=== PATIENT | female | born 1965 | race Caucasian/White ===

== ENCOUNTER 2023-06-10 19:34 | Inpatient (IN) | payer MEDICAID ==
[~2023-06-10] VITALS: Ht 129.5 cm; Wt 63.0 kg
[2023-06-10 19:43] VITALS: BP 11/71; PULSE 90; RESP 22; TEMP 99.2; O2SAT 98
--- NOTE | 2023-06-10 20:06 | NUR ---
PT TAKEN TO BED AMBULATORY
--- NOTE | 2023-06-10 20:10 | NUR ---
57yo f cc of 9/10 left flank pain this 4am associated with vomiting and fever. denies pmhx and allergy. pt resting on bed, a/ox4, not in distress. on monitor, call light oriented and within reach. bed locked in lowest position. side rails x2 for safety. daughter at bedside
--- NOTE | 2023-06-10 20:23 | NUR ---
Patient being evaluated by physician at bedside.
[2023-06-10] MEDS ORDERED: KETOROLAC 30 MG/ML VIAL IVP ONE (20:25)
[2023-06-10] MEDS ORDERED: NACL 0.9% 1,000 ML IV ONE ×2 (20:25→21:10)
[2023-06-10 20:42] LABS: BASOPHILS % (AUTO) 0.1 % (0.0-2.0); HEMATOCRIT 35.7 % (36-48); HEMOGLOBIN 12.2 g/dL (12.0-16.0); LYMPHOCYTES # (AUTO) 0.3 K/uL (2.5-16.5); LYMPHOCYTES % (AUTO) 6.2 % (20.5-51.1); MEAN CORPUSCULAR HEMOGLOBIN 30 pg (27-31); MEAN CORPUSCULAR HGB CONC 34 g/dL (33-37); MEAN CORPUSCULAR VOLUME 88.3 fL (80-94); MONOCYTES % (AUTO) 0.4 % (1.7-9.3); NEUTROPHILS # (AUTO) 3.8 K/uL (1.8-7.7); NEUTROPHILS % (AUTO) 93.3 % (42.2-75.2); PLATELET COUNT (AUTO) 181 K/uL (140-450); RED BLOOD CELL COUNT(AUTO) 4.05 MIL/uL (4.20-5.40); WHITE BLOOD COUNT (AUTO) 4.1 K/uL (4.8-10.8)
[2023-06-10 20:49] LABS: BILIRUBIN,URINE NEGATIVE (NEGATIVE); BLOOD, URINE 2+ (NEGATIVE); COLOR,URINE YELLOW (YELLOW); LEUKOCYTE ESTERASE ,URINE 3+ (NEGATIVE); NITRITE, URINE POSITIVE (NEGATIVE); PH,URINE 8.5 (5.0-9.0); UGLUCOSE NEGATIVE (NEGATIVE)
[2023-06-10 20:50] LABS: APPEARANCE,URINE CLOUDY (CLEAR)
[2023-06-10 20:54] LABS: ALBUMIN 3.7 g/dL (3.4-5.0); ANION GAP 15.4 (8-16); CARBON DIOXIDE 25.5 mmol/L (21-32); CREATININE 1.1 mg/dL (0.6-1.3); TOTAL BILIRUBIN 1.6 mg/dL (0.0-1.0)
[2023-06-10 20:57] LABS: POTASSIUM 2.9 mmol/L (3.5-5.1)
--- NOTE | 2023-06-10 21:00 | NUR ---
informed dr. roberson of pt's oral temp: 101.2. dr. roberson verbalized understanding and will order tylenol.
--- NOTE | 2023-06-10 21:00 | NUR ---
informed dr. roberson of o2 sat 92%. dr. roberson verbalized understanding and will order xray. dr. roberson verbalized to maintain on room air
[2023-06-10 21:02] LABS: RBC,URINE 11-20 (MOD) /HPF (0-5)
[2023-06-10] MEDS ORDERED: POTASSIUM CHLORIDE 20% 40 MEQ/15 ML UDC PO ONE (21:10)
[2023-06-10] MEDS ORDERED: cefTRIAXone 1,000 MG VIAL ONE (21:22)
[2023-06-10] MEDS ORDERED: ACETAMINOPHEN EXTRA STRENGTH 500 MG TAB PO ONE (22:00)
--- NOTE | 2023-06-10 22:38 | NUR ---
X-Ray at bedside.
--- NOTE | 2023-06-11 00:32 | NUR ---
bp: 89/50, informed dr. roberson. dr. roberson verbalized understanding and will evaluate the pt.
--- NOTE | 2023-06-11 00:59 | NUR ---
dr. whitney called and ordered to admit pt to [facility], [id number] @ 100ml/hr, regular diet. Telephone order read back and confirmed by dr. whitney
[2023-06-11] MEDS: NACL 0.9% 1,000 ML IV SCH ×3 (01:30→21:29)
--- NOTE | 2023-06-11 01:47 | NUR ---
Patient will be admitted to care of dr. Loja. Admited to Med/surg. Will go to room 111b. Belongings list completed. Report to samra monge. samra monge verbalized understanding and no further question
[2023-06-11 01:55] VITALS: PULSE 68; RESP 18; O2SAT 94
--- NOTE | 2023-06-11 01:55 | NUR ---
PT WAS TRANSPORTED FROM ER VIA GURNEY. PT IS ALERT AND ORIENTATED. PT IS MONEGASQUE SPEAKING. NOT IN ANY DISTRESS. PT HAS IV ON LEFT AC 20 GAUGE RUNNING NS 100 CC/HR. NOTICED ARM SWELLING. PT REPORTED BURNING SENSATION. IV WAS REMOVED. CATHETER INTACT. NEW IV STARTED ON RIGHT FOREARM 22 GAUGE. 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 WILL CONTINUE TO MONITOR THE PT.
[2023-06-11 02:00] VITALS: BP 90/51; PULSE 68; RESP 18; TEMP 97.9; O2SAT 94
--- NOTE | 2023-06-11 07:22 | NUR ---
ENDORSED PT TO DAY SHIFT NURSE FOR CONTINUITY OF CARE. PT IS STABLE.
--- NOTE | 2023-06-11 07:23 | NUR ---
RECEIVED PT FROM SHORT STORY WRITER NURSE FOR CONTINUITY OF CARE. PT IS AWAKE, AOX4 OCCITAN SPEAKING. RESPIRATIONS EVEN AND UNLABORED ON RA. IV ON R FA 22G INTACT AND PATIENT INFUSING NS @ 100. SKIN WARM AND DRY. CALL LIGHT WITHIN REACH, ALL SAFETY PRECAUTIONS IN PLACE.
[2023-06-11] MEDS ORDERED: ONDANSETRON 4 MG/2 ML VIAL IVP PRN (07:25)
[2023-06-11] MEDS ORDERED: MAG SULF 2000 MG/WATER PREMIX 50 ML IV PRN (07:25)
[2023-06-11] MEDS ORDERED: ZOLPIDEM 10 MG TAB PO PRN (07:25)
[2023-06-11] MEDS ORDERED: DOCUSATE SODIUM 100 MG GELCAP PO PRN (07:25)
[2023-06-11] MEDS ORDERED: LORazepam 2 MG/ML VIAL IVP PRN (07:25)
[2023-06-11 08:00] VITALS: BP 88/46; PULSE 62; RESP 18; TEMP 97.5; O2SAT 94; O2SAT 97
[2023-06-11 13:11] LABS: BASOPHILS # (AUTO) 0.1 K/uL (0.00-0.22); BASOPHILS % (AUTO) 0.4 % (0.0-2.0); EOSINOPHILS # (AUTO) 0.1 K/uL (0-0.4); EOSINOPHILS % (AUTO) 0.6 % (0.0-4.0); HEMATOCRIT 29.2 % (36-48); LYMPHOCYTES # (AUTO) 1.2 K/uL (2.5-16.5); MEAN CORPUSCULAR HEMOGLOBIN 30 pg (27-31); MEAN CORPUSCULAR HGB CONC 34 g/dL (33-37); MEAN CORPUSCULAR VOLUME 88.9 fL (80-94); MONOCYTES # (AUTO) 0.6 K/uL (0.8-1.0); MONOCYTES % (AUTO) 4.1 % (1.7-9.3); NEUTROPHILS # (AUTO) 12.6 K/uL (1.8-7.7); NEUTROPHILS % (AUTO) 86.9 % (42.2-75.2); PLATELET COUNT (AUTO) 154 K/uL (140-450); RED BLOOD CELL COUNT(AUTO) 3.28 MIL/uL (4.20-5.40); RED CELL DISTRIBUTION WIDTH 14.2 % (11.6-13.7); WHITE BLOOD COUNT (AUTO) 14.5 K/uL (4.8-10.8)
[2023-06-11 13:19] LABS: ANION GAP 10.7 (8-16); CARBON DIOXIDE 26.8 mmol/L (21-32); CREATININE 0.8 mg/dL (0.6-1.3); POTASSIUM 3.5 mmol/L (3.5-5.1)
[2023-06-11] MEDS: ACETAMINOPHEN 325 MG TAB PO PRN (15:00)
[2023-06-11 16:00] VITALS: BP 114/63; PULSE 60; RESP 16; TEMP 98.5; O2SAT 99
--- NOTE | 2023-06-11 16:28 | NUR ---
INFORMED DR PT IS C/O OF CHEST PAIN WHICH PT STATES SHE THINKS IS DUE TO HER ONGOING COUGH. DR PLACED ORDER FOR COUGH MEDICATION.
[2023-06-11] MEDS ORDERED: guaiFENesin 600 MG TABER PO SCH (16:30)
--- NOTE | 2023-06-11 18:19 | NUR ---
ADMINISTERED PRN COUGH MEDICATION. PT TOLERATED WELL. STATES HEADACHE FROM EARLIER IS NOW GONE.
--- NOTE | 2023-06-11 19:27 | NUR ---
ENDORSED PT TO BRIM PRESSER NURSE FOR CONTINUITY OF CARE. ALL NEEDS MET THROUGHOUT SHIFT. PT IS STABLE.
--- NOTE | 2023-06-11 19:30 | NUR ---
RECEIVED REPORT FROM DAY SHIFT NURSE FOR CONTINUITY OF CARE. PT IS RESTING IN BED. NOT IN ANY DISTRESS. BREATHING EVEN AND UNLABORED. POC DISCUSSED. CALL LIGHT WITHIN REACH. WILL CONTINUE TO MONITOR THE PT.
[2023-06-11 20:00] VITALS: BP 144/73; PULSE 54; RESP 18; TEMP 98.1; O2SAT 96
[2023-06-11] MEDS: MORPHINE SULFATE 2 MG/ML SYR IVP PRN (21:30)
--- NOTE | 2023-06-12 01:10 | NUR ---
PT CALLED COMPLAINING THE IV PUMP ALARM IS GOING OFF. WENT OVER AND FIXED IT. NOTICED PT STILL COUGHING AND STILL COMPLAINING OF CHEST PAIN. PT STATES THE PAIN IS CAUSING HER TO COUGH AND REFUSES COUGH MEDICATION. PAIN MEDICATION WAS GIVEN EARLIER AND PT STATES IT DIDN'T HELP. SHE HAD VOMITED. PT DOES NOT WANT ANYTHING AND SHE IS OKAY HOW SHE IS RIGHT NOW. WILL CONTINUE TO MONITOR THE PT.
[2023-06-12] MEDS: ACETAMINOPHEN 325 MG TAB PO PRN ×3 (03:27→20:50)
[2023-06-12 06:40] LABS: BASOPHILS % (AUTO) 0.2 % (0.0-2.0); EOSINOPHILS # (AUTO) 0.1 K/uL (0-0.4); EOSINOPHILS % (AUTO) 0.4 % (0.0-4.0); HEMATOCRIT 28.7 % (36-48); HEMOGLOBIN 9.9 g/dL (12.0-16.0); LYMPHOCYTES # (AUTO) 1.1 K/uL (2.5-16.5); MEAN CORPUSCULAR HEMOGLOBIN 31 pg (27-31); MEAN CORPUSCULAR HGB CONC 35 g/dL (33-37); MEAN CORPUSCULAR VOLUME 88.4 fL (80-94); MONOCYTES # (AUTO) 0.7 K/uL (0.8-1.0); MONOCYTES % (AUTO) 5.1 % (1.7-9.3); NEUTROPHILS # (AUTO) 12.2 K/uL (1.8-7.7); NEUTROPHILS % (AUTO) 86.3 % (42.2-75.2); PLATELET COUNT (AUTO) 138 K/uL (140-450); RED BLOOD CELL COUNT(AUTO) 3.24 MIL/uL (4.20-5.40); RED CELL DISTRIBUTION WIDTH 14.2 % (11.6-13.7); WHITE BLOOD COUNT (AUTO) 14.1 K/uL (4.8-10.8)
[2023-06-12 07:03] LABS: ANION GAP 12.7 (8-16); CARBON DIOXIDE 22.6 mmol/L (21-32); CREATININE 0.6 mg/dL (0.6-1.3); POTASSIUM 3.3 mmol/L (3.5-5.1)
[2023-06-12] MEDS: NACL 0.9% 1,000 ML IV SCH (07:06)
--- NOTE | 2023-06-12 07:14 | NUR ---
ENDORSED PT TO DAY SHIFT RN FOR CONTINUITY OF CARE. PT IS STABLE.
--- NOTE | 2023-06-12 07:15 | NUR ---
RECEIVED BEDSIDE REPORT FROM NIGHT NURSE FOR CONTINUITY OF CARE. PT IS AWAKE, NO SIGN OF DISTRESS. CALL LIGHT WITHIN REACH.
[2023-06-12 08:00] VITALS: BP 127/71; PULSE 56; PULSE 57; RESP 18; TEMP 97.4; O2SAT 94; O2SAT 96
[2023-06-12] MEDS: POTASSIUM CHLORIDE 10 MEQ TABER PO PRN (09:55)
--- NOTE | 2023-06-12 10:02 | NUR ---
PATIENT HAS BEEN SCREENED AND CATEGORIZED LOW NUTRITION RISK. PATIENT WILL BE SEEN WITHIN 7 DAYS OF ADMISSION. 06/18/[address]
[2023-06-12 16:00] VITALS: BP 137/74; PULSE 65; RESP 20; TEMP 98.2; O2SAT 98
[2023-06-12] MEDS ORDERED: guaiFENesin 600 MG TABER PO PRN (18:25)
--- NOTE | 2023-06-12 19:14 | NUR ---
GAVE BEDSIDE REPORT TO ADVERTISING DIRECTOR NURSE FOR CONTINUITY OF CARE, PT IS AWAKE, SEATED ON HER BED, NO SIGN OF DISTRESS. CALL LIGHT WITHIN REACH.
[2023-06-12 20:00] VITALS: PULSE 65; RESP 18; O2SAT 96
--- NOTE | 2023-06-12 20:45 | NUR ---
HIT THE CALL LIGHT PT C/O NECK PAIN NON RADIATING , BP 122/ 65 , KY 82 , RR 18 , O2 SAT 98 % , T 98.5 F - WILL MEDICATE
[2023-06-12] MEDS: MEROPENEM 1,000 MG in NACL 0.9% 50 ML IV SCH (21:07)
--- NOTE | 2023-06-12 22:00 | NUR ---
ROUNDS , SLEEPING , BUT EASILY AROUSABLE BY SOUNDS AND TOUCH , WILL CONT. TO MONITIR , DENIES PAIN AT THIS TIME .
[2023-06-13] VITALS: BP 100/60; PULSE 62; RESP 18; TEMP 98.5; O2SAT 98
--- NOTE | 2023-06-13 05:00 | NUR ---
GARCIA , PT C/O HEADACHE AND SHE DESCRIBE IS THE WORST HEADACHE OF HER LIFE , SHE SAID THERE NUMBNESS ON HER NECK RADIATING TO FOREHEAD - BP 130 / 70 , NJ 85 , RR 20 , O2 SAT 97 % - WILL MEDICATE AND WILL INFORM DR. WELLS , WILL CONT. TO MONITOR , CALL LIGHT WITHIN REACH .
[2023-06-13] MEDS: MORPHINE SULFATE 2 MG/ML SYR IVP PRN (05:03)
[2023-06-13] MEDS: MEROPENEM 1,000 MG in NACL 0.9% 50 ML IV SCH ×3 (05:09→21:51)
--- NOTE | 2023-06-13 06:03 | NUR ---
DENIES PAIN AT THIS TIME , THE NUMBNESS IS STILL THERE BUT VERY LIGHT PT'S SAID , WILL CONT. TO MONITOR .
[2023-06-13 06:34] LABS: BASOPHILS # (AUTO) 0.1 K/uL (0.00-0.22); EOSINOPHILS # (AUTO) 0.1 K/uL (0-0.4); EOSINOPHILS % (AUTO) 1.2 % (0.0-4.0); HEMOGLOBIN 10.6 g/dL (12.0-16.0); LYMPHOCYTES % (AUTO) 10.9 % (20.5-51.1); MEAN CORPUSCULAR HEMOGLOBIN 31 pg (27-31); MEAN CORPUSCULAR HGB CONC 35 g/dL (33-37); MEAN CORPUSCULAR VOLUME 87.4 fL (80-94); MONOCYTES # (AUTO) 0.6 K/uL (0.8-1.0); MONOCYTES % (AUTO) 6.6 % (1.7-9.3); NEUTROPHILS # (AUTO) 7.3 K/uL (1.8-7.7); NEUTROPHILS % (AUTO) 80.3 % (42.2-75.2); PLATELET COUNT (AUTO) 173 K/uL (140-450); RED BLOOD CELL COUNT(AUTO) 3.44 MIL/uL (4.20-5.40); RED CELL DISTRIBUTION WIDTH 13.8 % (11.6-13.7); WHITE BLOOD COUNT (AUTO) 9.2 K/uL (4.8-10.8)
[2023-06-13 06:45] LABS: ANION GAP 10.7 (8-16); CARBON DIOXIDE 26.3 mmol/L (21-32); CREATININE 0.6 mg/dL (0.6-1.3)
--- NOTE | 2023-06-13 07:42 | NUR ---
ENDORSED PT TO MEGHA PORTILLO FOR CONT. OF CARE , ENDORSED TO AM NURSE TO FF UP TO MD ABOUT THE FACIAL NUMBNESS OF THE PT - DR. WELLS INFORMED BUT NO REPLY BACK FROM HIM .
--- NOTE | 2023-06-13 07:42 | NUR ---
RECEIVED BEDSIDE REPORT FROM MAKING DEPARTMENT PREPARER NURSE FOR CONTINUITY OF CARE. PT IS AWAKE, NO SIGNS OF DISTRESS. CALL LIGHT WITHIN REACH.
[2023-06-13] MEDS ORDERED: POTASSIUM CHLORIDE 10 MEQ TABER PO SCH (07:48)
[2023-06-13 08:00] VITALS: BP 129/71; PULSE 71; RESP 20; TEMP 97.5; O2SAT 96
[2023-06-13] MEDS ORDERED: MAG SULF 2000 MG/WATER PREMIX 50 ML IV SCH (08:00)
[2023-06-13] MEDS: ACETAMINOPHEN 325 MG TAB PO PRN (12:20)
[2023-06-13 16:00] VITALS: BP 114/72; PULSE 64; RESP 20; TEMP 97.6; O2SAT 97
--- NOTE | 2023-06-13 16:41 | NUR ---
DC PLANN[age] YRS OLD FEMALE PATIENT WAS ADMITTED FROM HOME WITH A DX OF UTI. PATIENT HAS NO MEDICAL HX. CXR SHOWED NO ACUTE FINDINGS. 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 NO HYDRONEPHROSIS URINE AND BLOOD CULTURE SHOWED GRAM NEGATIVE RODS. SEEN BY DR FALGUNI WHELAN ORDERED IV ABX MEROPENEM. DC PLAN AWAITING FOR THE SENSITIVITY OF THE URINE AND BLOOD CULTURE. CM TO FOLLOW
--- NOTE | 2023-06-13 19:36 | NUR ---
GAVE REPORT TO CARPENTRY PROFESSIONAL NURSE FOR CONTINUITY OF CARE, PT IS SITTING ON THE BED WITH FAMILY AT BEDSIDE. NO SIGN OF DISTRESS. CALL LIGHT WITHIN REACH.
[2023-06-13 20:00] VITALS: PULSE 66; RESP 18; O2SAT 97
--- NOTE | 2023-06-13 20:09 | NUR ---
pt requesting shower tonight - per dr. pitts - no shower tonight . will inform pt .
[2023-06-14] VITALS: BP 116/63; PULSE 66; RESP 18; TEMP 98; O2SAT 96
[2023-06-14] MEDS: ACETAMINOPHEN 325 MG TAB PO PRN
[2023-06-14] MEDS: MEROPENEM 1,000 MG in NACL 0.9% 50 ML IV SCH ×3 (06:00→12:36)
--- NOTE | 2023-06-14 06:18 | NUR ---
REFUSED IV MERREM - PER PT SHE NOTICED EVERY TIME - SHE GETTING MERREM TIV MAKES HER HEADACHE AND NUMBNESS OT HE BACK OF THE HEAD RADIATING TO FACE - WILL ENDORSE TO AM NURSE - TO ADDRESS THIS ISSUE TO MD - WILL ENDORSE . Addendum: 06/14/23 at 0622 by Lidia Thomas RN MERREM ALREADY DILUTED - WILL DISPOSE PER PROTOCOL
[2023-06-14 06:42] LABS: BASOPHILS # (AUTO) 0.1 K/uL (0.00-0.22); BASOPHILS % (AUTO) 1.1 % (0.0-2.0); EOSINOPHILS # (AUTO) 0.2 K/uL (0-0.4); EOSINOPHILS % (AUTO) 2.5 % (0.0-4.0); HEMATOCRIT 34.4 % (36-48); HEMOGLOBIN 11.9 g/dL (12.0-16.0); LYMPHOCYTES # (AUTO) 1.6 K/uL (2.5-16.5); LYMPHOCYTES % (AUTO) 25.7 % (20.5-51.1); MEAN CORPUSCULAR HEMOGLOBIN 30 pg (27-31); MEAN CORPUSCULAR HGB CONC 35 g/dL (33-37); MEAN CORPUSCULAR VOLUME 87.7 fL (80-94); MONOCYTES # (AUTO) 0.7 K/uL (0.8-1.0); NEUTROPHILS # (AUTO) 3.6 K/uL (1.8-7.7); NEUTROPHILS % (AUTO) 59.7 % (42.2-75.2); PLATELET COUNT (AUTO) 221 K/uL (140-450); RED BLOOD CELL COUNT(AUTO) 3.92 MIL/uL (4.20-5.40); RED CELL DISTRIBUTION WIDTH 13.7 % (11.6-13.7); WHITE BLOOD COUNT (AUTO) 6.1 K/uL (4.8-10.8)
[2023-06-14 06:53] LABS: ANION GAP 12.4 (8-16); CARBON DIOXIDE 26.8 mmol/L (21-32); CREATININE 0.5 mg/dL (0.6-1.3); POTASSIUM 3.2 mmol/L (3.5-5.1)
--- NOTE | 2023-06-14 08:00 | NUR ---
ENDORSED FOR CONT. OF CARE .
--- NOTE | 2023-06-14 08:30 | NUR ---
receive the patent from the secretary office clerk rn in rm [id number] aox4 bulgarian speaking . with admitting diagnosis of urinary tract infection . sepsis . for antibiotic therapy. will continue to monitor
--- NOTE | 2023-06-14 08:35 | NUR ---
NOTIFIED DR. LUJAN OF PT REFUSING IVPB MERREM, PT STATED SHE GETS HEADACHE AND NUMBNESS RADIATING TO FACE. PER MD, CONSULT ID. MESSAGE SENT TO DR. MONTES DE OCA.
--- NOTE | 2023-06-14 08:50 | NUR ---
NOTIFIED DR. MONTES DE OCA OF PT'S REPORT OF HEADACHE AND NUMBNESS AFTER ADMINISTRATION OF IVPB MERREM. ORDER TO HOLD MEDICATION UNTIL PHYSICIAN IN TO SEE PT.
[2023-06-14 08:56] VITALS: PULSE 68; RESP 20; O2SAT 99
[2023-06-14] MEDS: POTASSIUM CHLORIDE 10 MEQ TABER PO PRN (10:09)
--- NOTE | 2023-06-14 12:30 | NUR ---
discontinue the intravenous port . identification band . made discharge patient teaching. discharge the patinet to the lobby thru a wheelchair to waiting private car with the son in a stable condition
[2023-06-14] MEDS ORDERED: LEVO750T75 PO (13:13)
[2023-06-14] MEDS ORDERED: LACT500C2 PO (13:13)
== END 2023-06-14 14:00 | disposition home or self-care (01) | DRG 720 ==
LOC: MED 19:34 → MMU 06-11 01:24 → MTU 06-11 01:45
PROVIDERS: ADMIT Family Medicine; ATTEND Family Medicine
DX: A41.50 Gram-negative sepsis, unspecified (principal); E87.20 Acidosis, unspecified; N12 Tubulo-interstitial nephritis, not specified as acute or chronic; R65.20 Severe sepsis without septic shock; E80.6 Other disorders of bilirubin metabolism; R71.0 Precipitous drop in hematocrit; E87.6 Hypokalemia; Z87.440 Personal history of urinary (tract) infections; Z98.891 History of uterine scar from previous surgery
CPT/HCPCS: 36415; 71045; 76770; 80048; 80053; 81001; 83605; 83735; 85025; 87040; 87081; 87086; 96365; 96375; 99291; J0696; J1885; J2185; J2270; J2405; J3475; J7060; Q0092